=== PATIENT | female | born 1990 ===

== ENCOUNTER 2017-04-13 12:29 | Emergency (ER) | payer SELFPAY ==
[2017-04-13 12:29] VITALS: BMI 24.0
--- NOTE | 2017-04-13 13:24 | C.PDOC ---
History Of Present Illness Patient is a 26 y/o female, with no significant past medical history, presents to ED for evaluation of bilateral groin pain associated with nausea for the last 3 days. Patient also complains of mild bend-like headache that developed today. Of note, patient is 8 months , . Denies having menstruation period yet. Otherwise, pt denies high fever, chills, denies worse headache of life, visual changes, focal deficits, dizziness, N/V, neck pain, chest pain, shortness of breath, diaphoresis, palpitation, cough, vomiting, diarrhea, changes in bowel habits, dysuria, hematuria, vaginal discharge or irritation, flank pain, or any other complaints at this time. Pt sts, had normal vaginal delivery, no post- complication or infection. Ambulate to Ed for evaluation, not in any apparent distress. Time Seen by Provider: 04/13/17 12:53 Chief Complaint (Nursing): Abdominal Pain History Per: Patient History/Exam Limitations: no limitations Onset/Duration Of Symptoms: Days (3) Current Symptoms Are (Timing): Still Present Location Of Pain/Discomfort: Suprapubic Radiation Of Pain To:: None Quality Of Discomfort: "Pain" Associated Symptoms: Nausea. denies: Vomiting, Diarrhea, Loss Of Appetite, Back Pain, Chest Pain, Constipation, Urinary Symptoms Exacerbating Factors: None Alleviating Factors: None Recent travel outside of the [place]: No Additional History Per: Patient Abnormal Vaginal Bleeding: No Past Medical History Reviewed: Historical Data, Nursing Documentation, Vital Signs Vital Signs: Last Vital Signs Temp 97.9 F 04/13/17 16:28 Pulse 68 04/13/17 16:28 Resp 16 04/13/17 16:28 BP 98/58 L 04/13/17 15:47 Pulse Ox 99 04/13/17 16:28 - Medical History PMH: No Chronic Diseases - [facility] Procedures ARTIF RUPT MEMBRANES NEC (10/07/13) DELIVERY OF PRODUCTS OF CONCEPTION, EXTERNAL APPROACH (08/11/16) DRAINAGE OF AMNIOTIC FL, THERAP FROM POC, VIA OPENING (08/11/16) MANUAL ASSIST DELIV NEC (10/07/13) REPAIR OB LACERATION NEC (10/07/13) Family History: States: Unknown Family Hx - Social History Hx Alcohol Use: No Hx Substance Use: No - Immunization History Hx Tetanus Toxoid Vaccination: No Hx Influenza Vaccination: No Hx Pneumococcal Vaccination: No Review Of Systems Except As Marked, All Systems Reviewed And Found Negative. Constitutional: Negative for: Fever, Chills Eyes: Negative for: Vision Change Cardiovascular: Negative for: Chest Pain, Palpitations Respiratory: Negative for: Cough, Shortness of Breath Gastrointestinal: Positive for: Nausea, Abdominal Pain. Negative for: Vomiting , Diarrhea Genitourinary: Positive for: Other (bilateral groin pain). Negative for: Dysuria, Frequency, Incontinence, Hematuria, Vaginal Discharge, Vaginal Bleeding Musculoskeletal: Negative for: Neck Pain, Back Pain Skin: Negative for: Rash, Bruising Neurological: Positive for: Headache. Negative for: Weakness, Numbness, Change in Speech, Dizziness Physical Exam - Physical Exam Appears: Well, Non-toxic, No Acute Distress Skin: Normal Color, Warm, Dry Head: Normacephalic Eye(s): bilateral: PERRL Ear(s): Bilateral: Normal Nose: No Flaring, No Discharge Oral Mucosa: Moist, No Drooling Tongue: Normal Appearing Lips: Normal Appearing Throat: No Erythema, No Exudate, No Drooling Neck: Normal ROM, No Midline Cervical Tenderness, No Paracervical Tenderness, Supple Chest: Symmetrical Cardiovascular: Rhythm Regular, No Murmur, No JVD, Other ((-) carotid bruits) Respiratory: No Decreased Breath Sounds, No Accessory Muscle Use, No Rales, No Rhonchi, No Stridor, No Wheezing Gastrointestinal/Abdominal: Soft, Tenderness (mild suprapubic), No Distention, No Guarding, No Rebound Back: No CVA Tenderness Extremity: Normal ROM, No Pedal Edema, No Calf Tenderness (B/L), No Deformity Neurological/Psych: Oriented x3, Normal Speech, Normal Cognition, Cerebellar Signs, Normal Motor, Normal Sensation, Normal Reflexes, Other (no focal deficits ) ED Course And Treatment - Laboratory Results Result Diagrams: 04/13/17 14:07 04/13/17 14:06 Lab Interpretation: No Acute Changes Urine POC: Negative ECG: Interpreted By Me, Viewed By Me ECG Rhythm: Sinus Rhythm ECG Interpretation: Normal Interpretation Of ECG: SR@87/min, NAD, no acute T wave or St-T changes. O2 Sat by Pulse Oximetry: 96 (RA) Pulse Ox Interpretation: Normal Progress Note: Plan: Blood work, UA, rapid strep, blood culture. Patient was given IV fluids, and Toradol. On re-evaluation, patient reports feeling better , reports improvement of pain. Afebrile, hemodynamicaly stable. Non-toxic. neck: Supple. Lungs: CTA B/L, BS equal B/L. CVS: (+)S1S2, reg. Abd: benign, ( -) guarding, (-) rebound, (-) localized tenderness. back: (-) CVA tenderness. neurologicaly intact. Blood work review and appears normal. UA (+) UTI. Rapid strep (-). case discussed with , diagnostics and imaging review. Rx : Cipro and outpt f/u recommend at this time. PT has clinical findings c/w suprapubic tenderness , UTI r/o pyelonephritis r/o viral illness. results review and discussed with pt. Pt advsied. ref. to f/u with PMx in 2-3 days for re-eavl. return to ED if any worsening or new changes. Disposition Counseled Patient/Family Regarding: Studies Performed, Diagnosis, Need For Followup, Rx Given - Disposition Referrals: [facility] at [facility] [Outside] Disposition: HOME/ ROUTINE Disposition Time: 15:11 Condition: STABLE Additional Instructions: Encourage fluids Take medication as prescribed Follow up with PMD and FIELD EVIDENCE TECHNICIAN in 1-2 days for re-evaluation. Return to ED if any worsening or new changes. Prescriptions: Ciprofloxacin [Cipro] 1 tab PO BID #14 tab Instructions: Acute Pyelonephritis (ED) Forms: ReplySend (Kazakh) Print Language: TURKISH - Clinical Impression Clinical Impression: Pyelonephritis - PA / FICTION AND NONFICTION PROSE WRITER / Resident Statement MD/DO has reviewed & agrees with the documentation as recorded. - Scribe Statement The provider has reviewed the documentation as recorded by the Scribe Charisse Sarmiento All medical record entries made by the Mariannibjhonny were at my direction and personally dictated by me. I have reviewed the chart and agree that the record accurately reflects my personal performance of the history, physical exam, medical decision making, and the department course for this patient. I have also personally directed, reviewed, and agree with the discharge instructions and disposition.
[2017-04-13] MEDS ORDERED: Sodium Chloride 0.9% 1,000 ML IV ONE (13:27)
[2017-04-13 13:34] LABS: RBC URINE 2 /hpf (0-3); URINE BACTERIA RARE (<OCC); URINE BILIRUBIN NEGATIVE (NEGATIVE); URINE BLOOD 1+ (NEGATIVE); URINE COLOR Yellow (YELLOW); URINE GLUCOSE (UA) NORMAL (Normal); URINE KETONE NEGATIVE (NEGATIVE); URINE LEUKOCYTE ESTERASE 3+ Leu/uL (Negative); URINE PROTEIN 1+ mg/dL (NEGATIVE); URINE UROBILINOGEN NORMAL mg/dL (0.2-1.0); WBC URINE 13 /hpf (0-5)
[2017-04-13] MEDS ORDERED: Sodium Chloride 0.9% 1,000 ML ONE (13:55)
[2017-04-13 14:14] LABS: BASO % 0.5 % (0.0-2.0); HEMATOCRIT 39.9 % (34.0-47.0); LYMPH # 0.9 K/uL (1.0-4.3); LYMPH % 17.8 % (20.0-40.0); MEAN CELL VOLUME 90.8 fL (81.0-99.0); MEAN CORPUSCULAR HEMOGLOBIN 31.4 pg (27.0-31.0); MEAN CORPUSCULAR HGB CONC 34.6 g/dL (33.0-37.0); MEAN PLATELET VOLUME 8.4 fL (7.2-11.7); MONO # 0.4 K/uL (0.0-0.8); MONO % 7.6 % (0.0-10.0); NRBC % 0.3 % (0.0-2.0); RED CELL DISTRIBUTION WIDTH 13.6 % (11.5-14.5); WHITE BLOOD COUNT 4.9 K/uL (4.8-10.8)
[2017-04-13 14:18] LABS: CHLORIDE 101 mmol/L (98-107); POTASSIUM 3.8 mmol/L (3.6-5.2); SODIUM 139 mmol/L (132-148)
[2017-04-13 14:21] LABS: BLOOD UREA NITROGEN 9 mg/dL (7-17); CARBON DIOXIDE 22 mmol/L (22-30); GFR AFRICAN-AMERICAN > 60; GLUCOSE,RANDOM 105 mg/dL (65-105)
[2017-04-13 14:22] LABS: CALCIUM 8.7 mg/dl (8.6-10.4)
[2017-04-13 15:47] VITALS: BP 98/58
[2017-04-13 16:29] VITALS: PULSE 68; RESP 16; TEMP 97.9
[2017-04-13 16:59] VITALS: O2SAT 96
--- NOTE | 2017-04-14 12:36 | CARD ---
APPROVED REPORT EKG Measurement Heart [id number] <Conclusion> Normal sinus rhythm Low voltage QRS Borderline ECG
== END 2017-04-13 16:29 | disposition home or self-care (01) ==
LOC: C.ER 12:29
DX: N12 Tubulo-interstitial nephritis, not specified as acute or chronic (principal)
CPT/HCPCS: 80048; 81001; 84703; 85025; 87040; 87070; 87086; 87430; 93005; 96361; 96374; 99284; J1885; J7040

== ENCOUNTER 2018-12-06 18:36 | Emergency (ER) | payer SELFPAY ==
[2018-12-06 18:52] VITALS: BMI 31.2
[2018-12-06 18:54] VITALS: RESP 20
[2018-12-06] MEDS ORDERED: Sodium Chloride 0.9% 1,000 ML IV STA (20:24)
--- NOTE | 2018-12-06 20:25 | C.PDOC ---
History Of Present Illness 28 year old female with no significant PMHx presents to the ED c/o left sided abdominal pain associated with nausea and vomiting for the past 2 days. Patient states she is currently on her menses and is normal. Patient denies fever, chills, CP, SOB, diarrhea, constipation, back pain, dysuria, hematuria, rash, recent travel, sick contacts. Time Seen by Provider: 12/06/18 20:08 Chief Complaint (Nursing): Abdominal Pain History Per: Patient History/Exam Limitations: no limitations Onset/Duration Of Symptoms: Days (2) Current Symptoms Are (Timing): Still Present Location Of Pain/Discomfort: LUQ, LLQ Radiation Of Pain To:: None Quality Of Discomfort: "Pain" Associated Symptoms: Nausea, Vomiting. denies: Diarrhea, Loss Of Appetite, Constipation, Urinary Symptoms Recent travel outside of the [place]: No Additional History Per: Patient Abnormal Vaginal Bleeding: No Last Menstral Period: currently Past Medical History Reviewed: Historical Data, Nursing Documentation, Vital Signs Vital Signs: Last Vital Signs Temp 98.7 F 12/06/18 18:50 Pulse 82 12/06/18 18:50 Resp 20 12/06/18 18:50 BP 113/77 12/06/18 18:50 Pulse Ox 100 12/06/18 18:50 - Medical History PMH: No Chronic Diseases Surgical History: No Surg Hx - [facility] Procedures ARTIF RUPT MEMBRANES NEC (10/07/13) DELIVERY OF PRODUCTS OF CONCEPTION, EXTERNAL APPROACH (08/11/16) DRAINAGE OF AMNIOTIC FL, THERAP FROM POC, VIA OPENING (08/11/16) MANUAL ASSIST DELIV NEC (10/07/13) REPAIR OB LACERATION NEC (10/07/13) Family History: States: Unknown Family Hx - Social History Hx Alcohol Use: No Hx Substance Use: No - Immunization History Hx Tetanus Toxoid Vaccination: No Hx Influenza Vaccination: No Hx Pneumococcal Vaccination: No Review Of Systems Except As Marked, All Systems Reviewed And Found Negative. Gastrointestinal: Positive for: Nausea, Vomiting, Abdominal Pain Physical Exam - Physical Exam Additional Physical Exam Comments: Constitutional: No acute distress. Head: Normocephalic. Atraumatic. Eyes: PERRL. ENT: Moist mucous membranes. Neck: Supple. Cardiovascular: Regular rate. Radial pulse 2+ bilaterally. Chest: No tenderness. Respiratory: Clear to auscultation bilaterally. GI: Soft. Left sided abdominal tenderness. Mild guarding. Nondistended. Back: No CVA tenderness. Musculoskeletal: No tenderness or swelling of extremities. Skin: No rash. Neurologic: Alert, no focal deficit. ED Course And Treatment - Laboratory Results Result Diagrams: 12/06/18 20:35 12/06/18 20:35 O2 Sat by Pulse Oximetry: 100 (On RA) Pulse Ox Interpretation: Normal Medical Decision Making Medical Decision Making: Plan: * Labs * IV fluids * Zofran 8 mg IVP * Urine culture * UA CT abd/pelvis EXAM: CT Abdomen and Pelvis with IV contrast CLINICAL HISTORY: Left side abd pain/vomiting TECHNIQUE: Axial computed tomography images of the abdomen and pelvis with intravenous contrast. 0.00 mGy-cm CONTRAST: With; 100MLS OMNI 300 COMPARISON: None provided. FINDINGS: LUNG BASES: The lung bases appear clear. No pleural effusions are seen. LIVER: Unremarkable. GALLBLADDER AND BILE DUCTS: The gallbladder appears within normal limits. No radioopaque gallstones are seen. No biliary ductal dilatation is evident. PANCREAS: Unremarkable. SPLEEN: Unremarkable. ADRENAL GLANDS: Unremarkable. KIDNEYS, URETERS, AND BLADDER: Bladder is decompressed. STOMACH AND BOWEL: Stomach is predominantly decompressed. No evidence for bowel obstruction or inflammation. APPENDIX: Normal appendix in the right lower quadrant. PERITONEUM: No free fluid. No free air. LYMPH NODES: No lymphadenopathy is evident. REPRODUCTIVE: Unremarkable as visualized. VASCULATURE: No evidence of abdominal aortic aneurysm. BONES: No aggressive appearing osseous lesion. No acute osseous pathology evident. IMPRESSION: 1. No acute pathology identified in the abdomen or pelvis. 2. Additional, incidental findings as described above. Electronically signed on Dec 06, 2018 10:30:19 PM EDT by: Jaguar Zelaya M.D., Certified by [facility]BR, Diagnostic Radiology Disposition - Disposition Disposition: HOME/ ROUTINE Disposition Time: 22:35 Condition: GOOD Prescriptions: Nitrofurantoin Macrocrystals [Macrobid] 100 mg PO BID #20 cap Ondansetron ODT [Zofran ODT] 4 mg PO Q8 #12 odt Instructions: Flank Pain Forms: [facility] (Czech), Gen Discharge Inst Bolivian - Clinical Impression Clinical Impression: UTI (urinary tract infection) - Scribe Statement The provider has reviewed the documentation as recorded by the Scribe Malik Gordon All medical record entries made by the Scribe were at my direction and personally dictated by me. I have reviewed the chart and agree that the record accurately reflects my personal performance of the history, physical exam, medical decision making, and the department course for this patient. I have also personally directed, reviewed, and agree with the discharge instructions and disposition.
[2018-12-06] MEDS ORDERED: Sodium Chloride 0.9% 1,000 ML ONE (20:34)
[2018-12-06 20:40] LABS: BASO % 0.4 % (0.0-2.0); EOS # 0.1 K/uL (0.0-0.7); EOS % 0.9 % (0.0-4.0); HEMOGLOBIN 14.3 g/dL (11.0-16.0); LYMPH # 2.5 K/uL (1.0-4.3); LYMPH % 33.6 % (20.0-40.0); MEAN CORPUSCULAR HEMOGLOBIN 31.9 pg (27.0-31.0); MEAN CORPUSCULAR HGB CONC 34.2 g/dL (33.0-37.0); MEAN PLATELET VOLUME 8.6 fL (7.2-11.7); MONO # 0.5 K/uL (0.0-0.8); MONO % 6.4 % (0.0-10.0); NEUT # 4.3 K/uL (1.8-7.0); NEUT % 58.7 % (50.0-75.0); NRBC % 0.1 % (0.0-2.0); RBC 4.47 Mil/uL (3.80-5.20); RED CELL DISTRIBUTION WIDTH 13.6 % (11.5-14.5); WHITE BLOOD COUNT 7.3 K/uL (4.8-10.8)
[2018-12-06 20:41] LABS: MEAN CELL VOLUME 93.3 fL (81.0-99.0)
[2018-12-06 20:45] LABS: HCG,QUALITATIVE URINE NEGATIVE (NEGATIVE)
[2018-12-06 20:46] LABS: SQUAMOUS EPITHIAL 9 /hpf (0-5); URINE BACTERIA OCC (<OCC); URINE BILIRUBIN NEGATIVE (NEGATIVE); URINE BLOOD 3+ (NEGATIVE); URINE CLARITY Hazy (Clear); URINE COLOR Yellow (YELLOW); URINE GLUCOSE (UA) NORMAL (Normal); URINE LEUKOCYTE ESTERASE NEG Leu/uL (Negative); URINE PROTEIN 1+ mg/dL (NEGATIVE); URINE UROBILINOGEN NORMAL mg/dL (0.2-1.0)
[2018-12-06 20:53] LABS: ALB/GLOB RATIO 1.3 (1.0-2.1); ALBUMIN 4.6 g/dL (3.5-5.0); ALT/SGPT 16 U/L (9-52); AST/SGOT 25 U/L (14-36); BLOOD UREA NITROGEN 11 mg/dL (7-17); CALCIUM 9.2 mg/dl (8.6-10.4); GFR NON-AFRICAN AMERICAN > 60; LIPASE 89 U/L (23-300)
[2018-12-06] MEDS ORDERED: Iohexol 300 100 ML IJ ONE (21:17)
[2018-12-06 22:49] VITALS: BP 104/71; PULSE 67; TEMP 97.9; O2SAT 99
--- NOTE | 2018-12-07 08:49 | CT ---
CT abdomen and pelvis HISTORY: Abdominal pain and vomiting. COMPARISON: None available. TECHNIQUE: Multiple contiguous axial images were performed through the abdomen and pelvis with the use of intravenous contrast. Subsequently, sagittal and coronal reformatted images were obtained. This CT exam was performed using one or more of the following dose reduction techniques: Automated exposure control, adjustment of the mA and/or kV according to patient size, and/or use of iterative reconstruction technique. Findings Mild atelectasis at the lung bases. No pleural or pericardial effusion. Relative area of low attenuation seen within the medial right and left hepatic lobes adjacent to the ligamentum teres which may represent some focal fatty infiltration. This is best seen on series 3 images 46 through 59. Clinical correlation. Correlation with contrast-enhanced CT or MRI maybe helpful if clinically indicated. Liver is otherwise preserved. Gallbladder is preserved. Spleen is preserved. Adrenal glands are preserved. Pancreas is preserved. Upper abdominal bowel is preserved. Right kidney: No calculi or hydronephrosis. Left Kidney: No calculi or hydronephrosis. Urinary bladder is preserved. Heterogeneous uterus and bilateral adnexa. Underdistention of the sigmoid colon. Few scattered colonic diverticuli. Appendix is visualized and is within normal limits. Few shotty para-aortic and inguinal lymph nodes. Few shotty mesenteric lymph nodes. Degenerative changes in the spine. Impression: Negative acute. Underdistention of the sigmoid colon. Few scattered colonic diverticuli. Relative area of low attenuation seen within the medial right and left hepatic lobes adjacent to the ligamentum teres which may represent some focal fatty infiltration. This is best seen on series 3 images 46 through 59. Clinical correlation. Correlation with contrast-enhanced CT or MRI maybe helpful if clinically indicated. Preliminary report was generated at 10:30 p.m. on 12/06/[address] Jaguar Zelaya from [employer]. This case was placed in the PA review folder.
== END 2018-12-06 23:09 | disposition home or self-care (01) ==
LOC: C.ER 18:36
DX: N39.0 Urinary tract infection, site not specified (principal)
CPT/HCPCS: 74177; 80053; 81001; 83690; 84703; 85025; 87086; 96361; 96374; 99284; J2405; J7030; Q9967

== ENCOUNTER 2018-12-14 11:14 | Emergency (ER) | payer OTHER ==
[2018-12-14 11:43] VITALS: O2SAT 98
[2018-12-14 12:05] LABS: BASO % 0.2 % (0.0-2.0); EOS # 0.1 K/uL (0.0-0.7); EOS % 1.3 % (0.0-4.0); HEMOGLOBIN 13.7 g/dL (11.0-16.0); LYMPH # 1.2 K/uL (1.0-4.3); LYMPH % 20.2 % (20.0-40.0); MEAN CELL VOLUME 92.5 fL (81.0-99.0); MEAN CORPUSCULAR HEMOGLOBIN 32.1 pg (27.0-31.0); MEAN CORPUSCULAR HGB CONC 34.7 g/dL (33.0-37.0); MEAN PLATELET VOLUME 8.7 fL (7.2-11.7); MONO # 0.4 K/uL (0.0-0.8); MONO % 6.9 % (0.0-10.0); NEUT # 4.2 K/uL (1.8-7.0); NEUT % 71.4 % (50.0-75.0); RBC 4.29 Mil/uL (3.80-5.20); RED CELL DISTRIBUTION WIDTH 13.6 % (11.5-14.5); WHITE BLOOD COUNT 5.9 K/uL (4.8-10.8)
--- NOTE | 2018-12-14 12:11 | RAD ---
Date of service: 12/14/2018 PROCEDURE: CHEST RADIOGRAPH, 1 VIEW HISTORY: cp COMPARISON: None available. FINDINGS: LUNGS: Clear. PLEURA: No pneumothorax or pleural fluid seen. CARDIOVASCULAR: No aortic atherosclerotic calcification present. Normal. OSSEOUS STRUCTURES: No significant abnormalities. VISUALIZED UPPER ABDOMEN: Normal. OTHER FINDINGS: None. IMPRESSION: No active disease.
[2018-12-14 12:20] LABS: HCG,QUALITATIVE URINE NEGATIVE (NEGATIVE)
[2018-12-14 12:23] LABS: SQUAMOUS EPITHIAL 13 /hpf (0-5); URINE BILIRUBIN NEGATIVE (NEGATIVE); URINE BLOOD NEGATIVE (NEGATIVE); URINE CLARITY Hazy (Clear); URINE COLOR Yellow (YELLOW); URINE GLUCOSE (UA) NORMAL (Normal); URINE LEUKOCYTE ESTERASE 2+ Leu/uL (Negative); URINE PROTEIN NEGATIVE (NEGATIVE); URINE UROBILINOGEN NORMAL mg/dL (0.2-1.0)
--- NOTE | 2018-12-14 12:24 | C.PDOC ---
History Of Present Illness 28 y/o female presents to the ER c/o neck and upper back pain assciated with chest pressure and numbness/tingling on entire face. Pt reports she was seen in the ER yesterday and was diagnosed with UTI; was discharged home with antib iotics which she has been compliant with. She denies SOB, palpitations, fever, abdominal pain, nausea, vomiting, diarrhea, facial droop, headache, extremity weakness, slurred speecj, visual changes, gait changes, fever, neck pain/stiffness. Time Seen by Provider: 12/14/18 11:27 Chief Complaint (Nursing): Chest Pain History Per: Patient History/Exam Limitations: no limitations Onset/Duration Of Symptoms: Days Current Symptoms Are (Timing): Still Present Severity: Mild Past Medical History Reviewed: Historical Data, Nursing Documentation, Vital Signs Vital Signs: Last Vital Signs Temp 98.1 F 12/14/18 11:41 Pulse 71 12/14/18 11:41 Resp 20 12/14/18 11:41 BP 119/77 12/14/18 11:41 Pulse Ox 98 12/14/18 11:41 - Medical History PMH: No Chronic Diseases - [facility] Procedures ARTIF RUPT MEMBRANES NEC (10/07/13) DELIVERY OF PRODUCTS OF CONCEPTION, EXTERNAL APPROACH (08/11/16) DRAINAGE OF AMNIOTIC FL, THERAP FROM POC, VIA OPENING (08/11/16) MANUAL ASSIST DELIV NEC (10/07/13) REPAIR OB LACERATION NEC (10/07/13) Family History: States: No Known Family Hx - Social History Hx Alcohol Use: No Hx Substance Use: No - Immunization History Hx Tetanus Toxoid Vaccination: No Hx Influenza Vaccination: No Hx Pneumococcal Vaccination: No Review Of Systems Constitutional: Negative for: Fever, Other (facial droop ) Cardiovascular: Positive for: Chest Pain (pressure). Negative for: Palpitations Respiratory: Negative for: Shortness of Breath Gastrointestinal: Negative for: Nausea, Vomiting, Abdominal Pain, Diarrhea Musculoskeletal: Positive for: Back Pain (upper ) Skin: Negative for: Rash Neurological: Positive for: Numbness (entire face), Other (entire face). N egative for: Weakness, Incoordination, Change in Speech, Confusion, Seizures, Altered Mental Status, Headache, Dizziness Physical Exam - Physical Exam Appears: Well, Non-toxic, No Acute Distress Skin: Warm, Dry Head: Atraumatic, Normacephalic Eye(s): bilateral: Normal Inspection, PERRL, EOMI Oral Mucosa: Moist Neck: No Midline Cervical Tenderness, No Step Off Deformity, Supple Cardiovascular: Rhythm Regular, No Murmur Respiratory: Normal Breath Sounds, No Rales, No Rhonchi, No Wheezing Gastrointestinal/Abdominal: Normal Exam, Bowel Sounds, Soft, No Tenderness Back: No CVA Tenderness Extremity: No Pedal Edema, No Calf Tenderness Pulses: Left Dorsalis Pedis: Normal, Right Dorsalis Pedis: Normal Neurological/Psych: Oriented x3, Normal Speech, Normal Cognition, Normal Cranial Nerves, No Cerebellar Signs, Normal Motor, Normal Sensation, No Expressive Aphasia, No Receptive Aphasia, No Dysarthria, No Romberg Gait: Steady ED Course And Treatment - Laboratory Results Result Diagrams: 12/14/18 12:00 12/14/18 12:00 Lab Results: Urine HCG, Qual Negative (NEGATIVE) 12/14/18 12:00 Urine HCG, Qual Negative (NEGATIVE) 12/14/18 12:00 ECG: Interpreted By Me, Viewed By Me (NSR 76 bpm, normal axis, no acute ST/T wave changes) ECG Interpretation: Normal O2 Sat by Pulse Oximetry: 98 (RA) Pulse Ox Interpretation: Normal - Other Rad CXR X-Ray: Read By Radiologist Interpretation: Accession No. : [id number]. Patient Name / ID : YOON REYES / [id number]. Exam Date : 12/14/2018 12:03:49 ( Approved ). Study Comment : Sex / Age : F / 28Y. Creator : Frank Floyd MD. Dictator : Frank Floyd MD. Social Group Worker : Regulatory Process Manager : Frank Floyd MD. Approver2 : Report Date : 12/14/2018 12:07:37. My Comment : . Date of service: 12/14/2018. PROCEDURE: CHEST RADIOGRAPH, 1 VIEW. HISTORY: cp. COMPARISON: None available. FINDINGS: LUNGS: Clear. PLEURA: No pneumothorax or pleural fluid seen. CARDIOVASCULAR: No aortic atherosclerotic calcification present. Normal. OSSEOUS STRUCTURES: No significant abnormalities. VISUALIZED UPPER ABDOMEN: Normal. OTHER FINDINGS: None. IMPRESSION: No active disease. Progress Note: Blood work, CXR, EKG, UA, UPreg, UDS ordered and reviewed. Reevaluation Time: 13:20 Reassessment Condition: Improved (On reassessment, patient is resting comfortably and states she feels bettrer. Blood work, including ANGELICA and d- dimer, was unremarkable. Do not suspect cardiac etiology. Patient instructed to follow up with PMD/clinic in 1-2 days, and she understands she should return to ED if symptoms worsen.) Disposition Counseled Patient/Family Regarding: Studies Performed, Diagnosis, Need For Followup, Rx Given - Disposition Referrals: [facility] [Outside] Disposition: HOME/ ROUTINE Disposition Time: 13:20 Condition: STABLE Additional Instructions: FOLLOW UP WITH YOUR DOCTOR/CLINIC IN 1-2 DAYS RETURN TO EMERGENCY ROOM IF SYMPTOMS BECOME WORSE SEGUIR CON SEXTON MDICO / CLNICA EN 1-2 MCCALLUM VUELVA A LA LEN DE EMERGENCIA SI LOS SNTOMAS SE HACEN PEOR Prescriptions: Ibuprofen [Motrin Tab] 600 mg PO Q6 PRN #30 tab PRN Reason: fever/pain Instructions: Chest Pain That Is Not Caused by the Heart (DC) Forms: [facility] (Kiswahili) Print Language: CHINESE - Clinical Impression Clinical Impression: Non-cardiac chest pain - Scribe Statement The provider has reviewed the documentation as recorded by the Terrance Carrasquillo Do Provider Attestation: All medical record entries made by the Terrance were at my direction and personally dictated by me. I have reviewed the chart and agree that the record accurately reflects my personal performance of the history, physical exam, medical decision making, and the department course for this patient. I have also personally directed, reviewed, and agree with the discharge instructions and disposition.
[2018-12-14 12:31] LABS: ALB/GLOB RATIO 1.4 (1.0-2.1); ALBUMIN 4.3 g/dL (3.5-5.0); ALT/SGPT 27 U/L (9-52); AST/SGOT 27 U/L (14-36); BLOOD UREA NITROGEN 12 mg/dL (7-17); CALCIUM 8.5 mg/dl (8.6-10.4); GFR NON-AFRICAN AMERICAN > 60
[2018-12-14 12:43] LABS: CK-MB < 0.22 ng/mL (0.0-3.38)
[2018-12-14 12:47] LABS: BARBITURATES, UR NEGATIVE (NEGATIVE); BENZODIAZEPINES, UR NEGATIVE (NEGATIVE); OPIATES, UR NEGATIVE (NEGATIVE); PHENCYCLIDINE, UR NEGATIVE (NEGATIVE)
[2018-12-14 13:35] VITALS: BP 105/69; PULSE 64; RESP 13; TEMP 98
--- NOTE | 2018-12-18 19:49 | CARD ---
APPROVED REPORT Date of service: 12/14/2018 EKG Measurement Heart [id number] [id number] [id number] <Conclusion> Normal sinus rhythm Normal ECG
== END 2018-12-14 13:34 | disposition home or self-care (01) ==
LOC: C.ER 11:14
DX: R07.89 Other chest pain (principal)